=== PATIENT | female | born 1975 | race Caucasian/White ===

== ENCOUNTER 2020-04-27 12:03 | Inpatient (IN) ==
[2020-04-27] MEDS ORDERED: MetroNIDAZOLE 500 MG/100 ML 500 MG/100 ML BAG IVPB ONE ×2 (12:26→12:28)
[2020-04-27] MEDS ORDERED: levoFLOXacin 500 MG/100 ML 500 MG/100 ML BAG IVPB ONE ×2 (12:26→12:28)
[2020-04-27] MEDS ORDERED: Ringers Solution, Lactated 1,000 ML IVC SCH (12:30)
[2020-04-27] MEDS ORDERED: Ondansetron 4 MG/2 ML VIAL IVP PRN ×2 (12:46→19:30)
[2020-04-27] MEDS ORDERED: *HR* Promethazine 25 MG/ML VIAL IVP PRN (12:46)
[2020-04-27] MEDS ORDERED: *HR* Midazolam HCl 2 MG/2 ML VIAL IVP PRN (12:46)
[2020-04-27] MEDS ORDERED: *HR* FentaNYL (PF) 100 MCG/2 ML VIAL IVP PRN (12:46)
[2020-04-27] MEDS ORDERED: diazePAM 5 MG TABLET PO ONE (12:46)
[2020-04-27] MEDS ORDERED: *HR* Meperidine 25 MG/ML SYRINGE IVP PRN (12:46)
[2020-04-27] MEDS ORDERED: *HR* HYDROmorphone PF 0.5 MG/0.5 ML SYRINGE IVP PRN (12:46)
[2020-04-27] MEDS ORDERED: *HR* OxyCODONE Immed Rel 5 MG TABLET PO PRN (12:46)
[2020-04-27] MEDS ORDERED: Ondansetron ODT 4 MG TAB.RAPDIS SL ONE (12:46)
[2020-04-27] MEDS ORDERED: Acetaminophen IV 1,000 MG/100 ML INFUS..BTL IVPB ONE (12:50)
[2020-04-27] MEDS ORDERED: *HR* Rocuronium Bromide 50 MG/5 ML VIAL ONE (13:10)
[2020-04-27] MEDS ORDERED: Lidocaine HCL 4 ML Topical Solution (Laryng-O-Jet Kit Sterile Pak) TP ONE (13:10)
[2020-04-27] MEDS ORDERED: Lidocaine -MPF 2% 2 ML VIAL ONE (13:10)
[2020-04-27] MEDS ORDERED: *HR* Propofol 200 MG/20 ML VIAL IVP ONE (13:10)
[2020-04-27] MEDS ORDERED: *HR* Succinylcholine 200 MG/10 ML VIAL IVP ONE (13:10)
[2020-04-27] MEDS ORDERED: *HR* Midazolam HCl 2 MG/2 ML VIAL ONE (13:10)
[2020-04-27] MEDS ORDERED: *HR* FentaNYL (PF) 100 MCG/2 ML VIAL ONE (13:10)
[2020-04-27] MEDS ORDERED: *HR* HYDROMORPHONE 2 MG/ML VIAL ONE ×2 (15:21→17:25)
[2020-04-27] MEDS ORDERED: Dexamethasone 4 MG/ML VIAL ONE (15:28)
[2020-04-27] MEDS ORDERED: Ondansetron 4 MG/2 ML VIAL ONE (15:28)
[2020-04-27] MEDS ORDERED: Neostigmine Methylsulfate 3 MG/3 ML SYRINGE ONE (15:28)
[2020-04-27] MEDS ORDERED: Morphine Sulfate Oral CONC 10 MG/0.5 ML ORAL.SYG SL PRN (19:30)
[2020-04-27] MEDS ORDERED: Naloxone 0.4 MG/ML INJ IVP PRN (19:30)
[2020-04-27] MEDS: 0.9 % Sodium Chloride 1,000 ML IVC SCH (19:58)
[2020-04-28] MEDS: Acetaminophen IV 1,000 MG/100 ML INFUS..BTL IVPB SCH ×4 (00:13→18:12)
[2020-04-28] MEDS: MetroNIDAZOLE 500 MG/100 ML 500 MG/100 ML BAG IVPB SCH ×2 (00:14→05:44)
[2020-04-28] MEDS: Ketorolac 30 MG/ML VIAL IVP SCH ×4 (00:14→18:11)
[2020-04-28 07:20] LABS: Basophils % 0.1 %; Hematocrit 36.2 % (35.3-44.9); Immature Granulocytes % 0.6 % (0-4); Lymphocytes # 0.9 K/mcL (0.6-4.6); Lymphocytes % 6.4 %; Mean Corpuscular HGB Conc 33.1 g/dL (31.6-35.5); Mean Corpuscular Hemoglobin 31.3 pg (28.0-33.3); Mean Corpuscular Volume 94.5 fL (83.0-100.0); Mean Platelet Volume 10.5 fL (9.4-12.4); Monocytes # 0.8 K/mcL (0.0-1.3); Monocytes % 5.3 %; Neutrophils # 12.6 K/mcL (1.6-8.9); Platelet Count 261 K/mcL (140-400); Red Blood Count 3.83 M/mcL (3.82-4.97); Red Cell Distribution Width 12.2 % (11.5-14.5); Segmented Neutrophils % 87.6 %; White Blood Count 14.3 K/mcL (4.3-11.1)
[2020-04-28 07:39] LABS: BUN/Creatinine Ratio 18 (6-26); Blood Urea Nitrogen 10 mg/dL (6-20); Calcium 8.6 mg/dL (8.6-10.3); Carbon Dioxide 21 mEq/L (23-29); Chloride 106 mEq/L (98-107); Glucose 122 mg/dL (70-105); Osmolality,Calculated 280 (280-300); Potassium 3.8 mEq/L (3.5-5.1); Sodium 135 mEq/L (136-145); eGFR For African Americans > 60 (> 60); eGFR For Non-African Americans > 60 (> 60)
[2020-04-28] MEDS ORDERED: levoFLOXacin 500 MG/100 ML 500 MG/100 ML BAG IVPB SCH (09:00)
[2020-04-28] MEDS: Pantoprazole 40 MG VIAL IVP SCH (09:35)
[2020-04-28] MEDS: 0.9 % Sodium Chloride 1,000 ML IVC SCH (10:54)
[2020-04-28] MEDS: *HR* Heparin 5,000 UNIT/ML VIAL SQ SCH (18:22)
[2020-04-29] MEDS: Ketorolac 30 MG/ML VIAL IVP SCH ×3 (00:04→11:42)
[2020-04-29] MEDS: Acetaminophen IV 1,000 MG/100 ML INFUS..BTL IVPB SCH ×3 (00:05→11:40)
[2020-04-29] MEDS: *HR* Heparin 5,000 UNIT/ML VIAL SQ SCH (05:53)
[2020-04-29] MEDS: 0.9 % Sodium Chloride 1,000 ML IVC SCH (05:53)
[2020-04-29 07:10] VITALS: BP 110/74
[2020-04-29] MEDS: Pantoprazole 40 MG VIAL IVP SCH (08:07)
== END 2020-04-29 15:40 | disposition home or self-care (01) | DRG 331 ==
LOC: SAMDAY 12:03 → 3ANU 19:19
PROVIDERS: ADMIT Surgery; ATTEND Surgery

== ENCOUNTER 2020-11-26 11:01 | Inpatient (IN) ==
[2020-11-26] MEDS ORDERED: Ondansetron 4 MG/2 ML VIAL IVP ONE (11:38)
[2020-11-26] MEDS ORDERED: *HR* FentaNYL (PF) 100 MCG/2 ML VIAL IVP ONE (11:38)
[2020-11-26] MEDS ORDERED: MetroNIDAZOLE 500 MG/100 ML 500 MG/100 ML BAG IVPB ONE (11:51)
[2020-11-26 12:19] LABS: Basophils % 0.3 %; Eosinophils # 0.1 K/mcL (0.0-0.6); Eosinophils % 0.5 %; Hemoglobin 13.3 g/dL (11.5-15.4); Immature Granulocytes % 0.5 % (0-4); Lymphocytes # 2.1 K/mcL (0.6-4.6); Mean Corpuscular HGB Conc 32.4 g/dL (31.6-35.5); Mean Corpuscular Hemoglobin 30.5 pg (28.0-33.3); Mean Platelet Volume 10.2 fL (9.4-12.4); Monocytes # 0.4 K/mcL (0.0-1.3); Monocytes % 2.7 %; Neutrophils # 10.4 K/mcL (1.6-8.9); Platelet Count 306 K/mcL (140-400); Red Blood Count 4.36 M/mcL (3.82-4.97); Red Cell Distribution Width 12.5 % (11.5-14.5)
[2020-11-26] MEDS ORDERED: 0.9 % Sodium Chloride 1,000 ML IVC STA (12:32)
[2020-11-26 12:35] LABS: Alanine Aminotransferase 20 Units/L (7-52); Albumin 4.2 g/dL (3.5-5.7); Albumin/Globulin Ratio 1.6 (1.1-2.2); Alkaline Phosphatase 62 Units/L (34-104); Aspartate Amino Transferase 16 Units/L (13-39); BUN/Creatinine Ratio 39 (6-26); Bilirubin,Direct 0.1 mg/dL (0.0-0.2); Bilirubin,Indirect 0.2 mg/dL (0.0-1.0); Bilirubin,Total 0.3 mg/dL (0.3-1.0); Blood Urea Nitrogen 28 mg/dL (6-20); Carbon Dioxide 22 mEq/L (23-29); Chloride 105 mEq/L (98-107); Globulin 2.7 g/dL (2.4-3.5); Glucose 108 mg/dL (70-105); Lipase 8 Units/L (11-82); Osmolality,Calculated 288 (280-300); Potassium 3.7 mEq/L (3.5-5.1); Sodium 136 mEq/L (136-145); Total Protein 6.9 g/dL (6.4-8.9); eGFR For African Americans > 60 (> 60); eGFR For Non-African Americans > 60 (> 60)
[2020-11-26] MEDS ORDERED: *HR* HYDROmorphone (PF) 1 MG/ML SYRINGE IVP ONE ×2 (12:39→13:39)
[2020-11-26] MEDS ORDERED: *HR* HYDROmorphone 20 MG/20 ML PCA IVC PRN (13:27)
[2020-11-26] MEDS ORDERED: Ketorolac 30 MG/ML VIAL IVP STA (13:42)
[2020-11-26] MEDS: Pantoprazole 40 MG VIAL IVP SCH ×2 (15:00→18:50)
[2020-11-26] MEDS: 0.9 % Sodium Chloride 1,000 ML IVC SCH ×2 (15:22→23:11)
[2020-11-26] MEDS: Ondansetron 4 MG/2 ML VIAL IVP PRN (15:45)
[2020-11-26 16:37] LABS: Bacteria,Urine Few per hpf (None-Few); Bilirubin,Urine Negative (Negative); Blood,Urine Small (Negative); Clarity,Urine Clear (Clear); Color,Urine Yellow (Yellow); Glucose,Urine (UA) Normal (Normal); Ketones,Urine Negative (Negative); Leukocyte Esterase,Urine Negative (Negative); Mucus,Urine Few per lpf (None-Few); Nitrite,Urine Negative (Negative); Protein,Urine Trace mg/dL (Neg-Trace); Specific Gravity,Urine > 1.030 (1.010-1.025); Squamous Epithelial Cell,Urine Few per hpf (None-Few); Urobilinogen,Urine Normal (Normal); WBC,Urine 0-3 per hpf (0-3)
[2020-11-26 17:58] LABS: Adenovirus Not Detected (Not Detect); Bordetella Pertussis Not Detected (Not Detect); Chlamydophila pneumoniae Not Detected (Not Detect); Coronavirus 229E Not Detected (Not Detect); Coronavirus HKU1 Not Detected (Not Detect); Coronavirus NL63 Not Detected (Not Detect); Coronavirus OC43 Not Detected (Not Detect); Human Metapneumovirus Not Detected (Not Detect); Human Rhinovirus/Enterovirus Not Detected (Not Detect); Influenza A Subtype 2009 H1 Not Detected (Not Detect); Influenza B Not Detected (Not Detect); Mycoplasma pneumoniae Not Detected (Not Detect); Parainfluenza Virus 1 Not Detected (Not Detect); Parainfluenza Virus 2 Not Detected (Not Detect); Parainfluenza Virus 3 Not Detected (Not Detect); Parainfluenza Virus 4 Not Detected (Not Detect); Respiratory Syncytial Virus Not Detected (Not Detect); SARS-CoV-2 Not Detected (Not Detect)
[2020-11-26] MEDS: Acetaminophen IV 1,000 MG/100 ML BAG IVPB SCH (18:17)
[2020-11-26] MEDS: *HR* Heparin 5,000 UNIT/ML VIAL SQ SCH (18:18)
[2020-11-26] MEDS: Ketorolac 30 MG/ML VIAL IVP SCH ×2 (18:18→23:10)
[2020-11-27] MEDS: Acetaminophen IV 1,000 MG/100 ML BAG IVPB SCH ×4 (00:19→18:23)
[2020-11-27] MEDS: Ondansetron 4 MG/2 ML VIAL IVP PRN (00:25)
[2020-11-27] MEDS ORDERED: 0.9 % Sodium Chloride 500 ML IVC ONE (03:57)
[2020-11-27] MEDS ORDERED: 0.9 % Sodium Chloride 500 ML ONE (04:03)
[2020-11-27] MEDS: *HR* Heparin 5,000 UNIT/ML VIAL SQ SCH ×2 (05:29→18:22)
[2020-11-27] MEDS: Ketorolac 30 MG/ML VIAL IVP SCH ×3 (05:30→18:22)
[2020-11-27 06:55] LABS: Hematocrit 35.1 % (35.3-44.9); Hemoglobin 11.9 g/dL (11.5-15.4); Mean Corpuscular HGB Conc 33.9 g/dL (31.6-35.5); Mean Corpuscular Hemoglobin 31.3 pg (28.0-33.3); Mean Corpuscular Volume 92.4 fL (83.0-100.0); Mean Platelet Volume 10.1 fL (9.4-12.4); Platelet Count 247 K/mcL (140-400); Red Cell Distribution Width 12.9 % (11.5-14.5)
[2020-11-27 06:59] LABS: White Blood Count 20.9 K/mcL (4.3-11.1)
[2020-11-27 07:16] LABS: BUN/Creatinine Ratio 36 (6-26); Blood Urea Nitrogen 25 mg/dL (6-20); Calcium 7.5 mg/dL (8.6-10.3); Carbon Dioxide 20 mEq/L (23-29); Chloride 104 mEq/L (98-107); Glucose 111 mg/dL (70-105); Osmolality,Calculated 277 (280-300); Potassium 4.1 mEq/L (3.5-5.1); Sodium 131 mEq/L (136-145); eGFR For African Americans > 60 (> 60); eGFR For Non-African Americans > 60 (> 60)
[2020-11-27] MEDS ORDERED: *HR* FentaNYL (PF) 100 MCG/2 ML VIAL ONE (07:25)
[2020-11-27] MEDS ORDERED: *HR* Midazolam HCl 2 MG/2 ML VIAL ONE (07:26)
[2020-11-27] MEDS ORDERED: *HR* Propofol 200 MG/20 ML VIAL IVP ONE (07:26)
[2020-11-27] MEDS ORDERED: Ondansetron 4 MG/2 ML VIAL ONE (07:28)
[2020-11-27] MEDS ORDERED: *HR* HYDROmorphone PF 0.5 MG/0.5 ML SYRINGE IVP PRN ×2 (07:29→10:41)
[2020-11-27] MEDS ORDERED: Ondansetron 4 MG/2 ML VIAL IVP PRN ×3 (07:29→12:09)
[2020-11-27 07:31] LABS: Lymphocytes # 2.1 K/mcL (0.6-4.6); Monocytes # 0.2 K/mcL (0.0-1.3); Neutrophils # 17.4 K/mcL (1.6-8.9)
[2020-11-27 07:32] LABS: Platelet Estimate Normal (Normal); Toxic Granulation Present (Not Present)
[2020-11-27] MEDS ORDERED: Lidocaine -MPF 4% 5 ML AMPUL ONE (07:33)
[2020-11-27] MEDS ORDERED: *HR* Succinylcholine 200 MG/10 ML VIAL IVP ONE (07:39)
[2020-11-27] MEDS ORDERED: *HR* Rocuronium Bromide 50 MG/5 ML VIAL ONE (07:39)
[2020-11-27] MEDS ORDERED: Sugammadex Sodium 200 MG/2 ML VIAL IV ONE (07:46)
[2020-11-27] MEDS ORDERED: *HR* Vasopressin 20 UNIT/ML VIAL ONE (07:56)
[2020-11-27] MEDS ORDERED: CefOXitin 1,000 MG VIAL ONE ×2 (08:08→09:33)
[2020-11-27] MEDS ORDERED: MetroNIDAZOLE 500 MG/100 ML 500 MG/100 ML BAG IVPB ONE (08:08)
[2020-11-27] MEDS ORDERED: *HR* HYDROMORPHONE 2 MG/ML VIAL ONE (09:07)
[2020-11-27] MEDS: Pantoprazole 40 MG VIAL IVP SCH (11:57)
[2020-11-27] MEDS ORDERED: *HR* HYDROmorphone 20 MG/20 ML PCA IVC PRN (12:09)
[2020-11-27] MEDS: 0.9 % Sodium Chloride 1,000 ML IVC SCH ×3 (13:17→22:05)
[2020-11-27] MEDS: MetroNIDAZOLE 500 MG/100 ML 500 MG/100 ML BAG IVPB SCH (17:14)
[2020-11-27] MEDS ORDERED: Chloraseptic Spray 177 ML BOTTLE MM PRN (17:30)
[2020-11-27] MEDS: *HR* Promethazine 25 MG/ML VIAL IM PRN (21:49)
[2020-11-28] MEDS: Ketorolac 30 MG/ML VIAL IVP SCH ×4 (00:59→17:28)
[2020-11-28] MEDS: Acetaminophen IV 1,000 MG/100 ML BAG IVPB SCH ×4 (01:02→17:29)
[2020-11-28] MEDS: MetroNIDAZOLE 500 MG/100 ML 500 MG/100 ML BAG IVPB SCH ×3 (01:18→16:28)
[2020-11-28 05:34] LABS: Basophils % 0.2 %; Eosinophils # 0.2 K/mcL (0.0-0.6); Eosinophils % 0.9 %; Hematocrit 33.6 % (35.3-44.9); Immature Granulocytes % 5.3 % (0-4); Lymphocytes # 1.4 K/mcL (0.6-4.6); Lymphocytes % 5.7 %; Mean Corpuscular HGB Conc 32.7 g/dL (31.6-35.5); Mean Corpuscular Hemoglobin 30.8 pg (28.0-33.3); Mean Corpuscular Volume 94.1 fL (83.0-100.0); Mean Platelet Volume 10.2 fL (9.4-12.4); Monocytes # 0.5 K/mcL (0.0-1.3); Monocytes % 2.1 %; Platelet Count 249 K/mcL (140-400); Red Blood Count 3.57 M/mcL (3.82-4.97); Red Cell Distribution Width 12.9 % (11.5-14.5); Segmented Neutrophils % 85.8 %; White Blood Count 24.4 K/mcL (4.3-11.1)
[2020-11-28 05:38] LABS: Basophils # 0.1 K/mcL (0.0-0.2); Neutrophils # 20.9 K/mcL (1.6-8.9)
[2020-11-28 05:52] LABS: BUN/Creatinine Ratio 16 (6-26); Blood Urea Nitrogen 11 mg/dL (6-20); Calcium 7.4 mg/dL (8.6-10.3); Carbon Dioxide 21 mEq/L (23-29); Chloride 107 mEq/L (98-107); Glucose 115 mg/dL (70-105); Osmolality,Calculated 280 (280-300); Potassium 3.5 mEq/L (3.5-5.1); Sodium 135 mEq/L (136-145); eGFR For African Americans > 60 (> 60); eGFR For Non-African Americans > 60 (> 60)
[2020-11-28] MEDS: *HR* Heparin 5,000 UNIT/ML VIAL SQ SCH ×2 (06:10→17:28)
[2020-11-28 06:21] LABS: Platelet Estimate Normal (Normal)
[2020-11-28] MEDS: 0.9 % Sodium Chloride 1,000 ML IVC SCH ×2 (07:49→17:30)
[2020-11-28] MEDS: Pantoprazole 40 MG VIAL IVP SCH (07:50)
[2020-11-28] MEDS ORDERED: Calcium Gluconate 1gm/50mL 1 GM/50 ML BAG IVPB ONE (09:48)
[2020-11-28] MEDS: Ondansetron 4 MG/2 ML VIAL IVP PRN ×2 (14:07→22:54)
[2020-11-28] MEDS: *HR* Promethazine 25 MG/ML VIAL IM PRN (17:54)
[2020-11-29] MEDS: MetroNIDAZOLE 500 MG/100 ML 500 MG/100 ML BAG IVPB SCH ×4 (00:46→23:51)
[2020-11-29] MEDS: Ketorolac 30 MG/ML VIAL IVP SCH ×4 (00:47→18:14)
[2020-11-29] MEDS: Acetaminophen IV 1,000 MG/100 ML BAG IVPB SCH ×5 (00:50→23:34)
[2020-11-29] MEDS: 0.9 % Sodium Chloride 1,000 ML IVC SCH ×3 (04:12→13:45)
[2020-11-29] MEDS: *HR* Heparin 5,000 UNIT/ML VIAL SQ SCH ×2 (05:14→18:15)
[2020-11-29] MEDS: Ondansetron 4 MG/2 ML VIAL IVP PRN ×4 (05:14→22:06)
[2020-11-29 06:31] LABS: Hematocrit 29.7 % (35.3-44.9); Hemoglobin 10.1 g/dL (11.5-15.4); Mean Corpuscular Hemoglobin 31.3 pg (28.0-33.3); Mean Platelet Volume 10.2 fL (9.4-12.4); Platelet Count 265 K/mcL (140-400); Red Blood Count 3.23 M/mcL (3.82-4.97); Red Cell Distribution Width 12.7 % (11.5-14.5); White Blood Count 21.4 K/mcL (4.3-11.1)
[2020-11-29 06:51] LABS: Eosinophils # 0.9 K/mcL (0.0-0.6); Lymphocytes # 1.7 K/mcL (0.6-4.6); Monocytes # 1.7 K/mcL (0.0-1.3); Neutrophils # 17.1 K/mcL (1.6-8.9); Platelet Estimate Normal (Normal)
[2020-11-29 06:53] LABS: BUN/Creatinine Ratio 14 (6-26); Blood Urea Nitrogen 8 mg/dL (6-20); Calcium 7.8 mg/dL (8.6-10.3); Carbon Dioxide 21 mEq/L (23-29); Chloride 108 mEq/L (98-107); Glucose 102 mg/dL (70-105); Osmolality,Calculated 281 (280-300); Potassium 3.3 mEq/L (3.5-5.1); Sodium 136 mEq/L (136-145); eGFR For African Americans > 60 (> 60); eGFR For Non-African Americans > 60 (> 60)
[2020-11-29] MEDS ORDERED: Potassium Chloride 40 MEQ, Lidocaine 1% 2 ML in 0.9 % Sodium Chloride 500 ML IVPB ONE (08:01)
[2020-11-29] MEDS: Pantoprazole 40 MG VIAL IVP SCH (08:46)
[2020-11-29] MEDS ORDERED: Scopolamine Patch 1.5 MG PATCH.TD72 TD ONE (08:50)
[2020-11-29] MEDS: Fluticasone Propionate Nasal 50 MCG/SPRAY BOTTLE NS SCH (18:14)
[2020-11-29] MEDS: *HR* LORazepam 2 MG/ML VIAL IVP PRN (23:56)
[2020-11-30] MEDS: Ketorolac 30 MG/ML VIAL IVP SCH ×4 (02:28→21:37)
[2020-11-30] MEDS: 0.9 % Sodium Chloride 1,000 ML IVC SCH ×2 (02:30→05:29)
[2020-11-30] MEDS: Acetaminophen IV 1,000 MG/100 ML BAG IVPB SCH ×3 (05:26→17:03)
[2020-11-30] MEDS: *HR* Heparin 5,000 UNIT/ML VIAL SQ SCH ×2 (05:26→17:03)
[2020-11-30 06:04] LABS: Basophils # 0.1 K/mcL (0.0-0.2); Basophils % 0.5 %; Eosinophils # 0.7 K/mcL (0.0-0.6); Eosinophils % 4.5 %; Hematocrit 28.2 % (35.3-44.9); Hemoglobin 9.3 g/dL (11.5-15.4); Immature Granulocytes % 3.7 % (0-4); Lymphocytes # 1.6 K/mcL (0.6-4.6); Lymphocytes % 10.7 %; Mean Corpuscular Hemoglobin 30.6 pg (28.0-33.3); Mean Corpuscular Volume 92.8 fL (83.0-100.0); Mean Platelet Volume 9.8 fL (9.4-12.4); Monocytes # 0.9 K/mcL (0.0-1.3); Monocytes % 6.2 %; Neutrophils # 10.9 K/mcL (1.6-8.9); Platelet Count 262 K/mcL (140-400); Red Blood Count 3.04 M/mcL (3.82-4.97); Red Cell Distribution Width 12.9 % (11.5-14.5); Segmented Neutrophils % 74.4 %; White Blood Count 14.6 K/mcL (4.3-11.1)
[2020-11-30 06:26] LABS: BUN/Creatinine Ratio 16 (6-26); Blood Urea Nitrogen 9 mg/dL (6-20); Calcium 7.8 mg/dL (8.6-10.3); Carbon Dioxide 21 mEq/L (23-29); Chloride 108 mEq/L (98-107); Glucose 106 mg/dL (70-105); Osmolality,Calculated 281 (280-300); Potassium 3.3 mEq/L (3.5-5.1); Sodium 136 mEq/L (136-145); eGFR For African Americans > 60 (> 60); eGFR For Non-African Americans > 60 (> 60)
[2020-11-30] MEDS ORDERED: Potassium Chloride 40 MEQ, Lidocaine 1% 2 ML in 0.9 % Sodium Chloride 500 ML IVPB ONE ×2 (06:43→13:00)
[2020-11-30 07:38] LABS: Magnesium 1.8 mg/dL (1.6-2.6); Phosphorous 2.8 mg/dL (2.7-4.5)
[2020-11-30] MEDS ORDERED: *HR* HYDROmorphone 20 MG/20 ML PCA IVC PRN (08:29)
[2020-11-30] MEDS: Pantoprazole 40 MG VIAL IVP SCH (08:30)
[2020-11-30] MEDS: MetroNIDAZOLE 500 MG/100 ML 500 MG/100 ML BAG IVPB SCH ×2 (08:31→15:15)
[2020-11-30] MEDS: Fluticasone Propionate Nasal 50 MCG/SPRAY BOTTLE NS SCH (08:32)
[2020-11-30] MEDS ORDERED: Baclofen 10 MG TABLET PO PRN (08:47)
[2020-11-30] MEDS: Ondansetron 4 MG/2 ML VIAL IVP PRN (10:07)
[2020-11-30] MEDS: Celecoxib 200 MG CAPSULE PO SCH (10:40)
[2020-11-30] MEDS: BuPROPion XL (24 HR) 150 MG TABLET PO SCH (10:41)
[2020-11-30] MEDS: 0.9 % Sodium Chloride w KCl 20 MEQ/1,000 ML MLS IVC SCH (10:41)
[2020-11-30] MEDS: Loratadine 10 MG TABLET PO SCH (13:08)
[2020-11-30] MEDS: *HR* LORazepam 2 MG/ML VIAL IVP PRN (21:36)
[2020-12-01] MEDS: 0.9 % Sodium Chloride w KCl 20 MEQ/1,000 ML MLS IVC SCH ×3 (00:05→23:55)
[2020-12-01] MEDS: Acetaminophen IV 1,000 MG/100 ML BAG IVPB SCH ×5 (00:06→23:55)
[2020-12-01] MEDS: MetroNIDAZOLE 500 MG/100 ML 500 MG/100 ML BAG IVPB SCH ×4 (00:23→23:55)
[2020-12-01] MEDS: Ketorolac 30 MG/ML VIAL IVP SCH ×4 (03:10→20:19)
[2020-12-01] MEDS: *HR* Heparin 5,000 UNIT/ML VIAL SQ SCH ×2 (05:30→18:14)
[2020-12-01 05:35] LABS: Hematocrit 29.5 % (35.3-44.9); Lymphocytes # 1.8 K/mcL (0.6-4.6); Mean Corpuscular HGB Conc 33.9 g/dL (31.6-35.5); Mean Corpuscular Hemoglobin 30.8 pg (28.0-33.3); Mean Corpuscular Volume 90.8 fL (83.0-100.0); Mean Platelet Volume 9.8 fL (9.4-12.4); Platelet Count 294 K/mcL (140-400); Red Blood Count 3.25 M/mcL (3.82-4.97); Red Cell Distribution Width 12.8 % (11.5-14.5); White Blood Count 12.9 K/mcL (4.3-11.1)
[2020-12-01 05:53] LABS: BUN/Creatinine Ratio 11 (6-26); Blood Urea Nitrogen 6 mg/dL (6-20); Calcium 8.2 mg/dL (8.6-10.3); Carbon Dioxide 21 mEq/L (23-29); Chloride 107 mEq/L (98-107); Glucose 112 mg/dL (70-105); Magnesium 1.7 mg/dL (1.6-2.6); Osmolality,Calculated 280 (280-300); Phosphorous 3.1 mg/dL (2.7-4.5); Potassium 3.6 mEq/L (3.5-5.1); Sodium 136 mEq/L (136-145); eGFR For African Americans > 60 (> 60); eGFR For Non-African Americans > 60 (> 60)
[2020-12-01 06:14] LABS: Monocytes # 0.5 K/mcL (0.0-1.3); Neutrophils # 10.6 K/mcL (1.6-8.9); Platelet Estimate Normal (Normal)
[2020-12-01 06:15] LABS: Toxic Granulation Present (Not Present)
[2020-12-01] MEDS: Calcium Acetate 667 MG CAPSULE PO SCH ×3 (08:23→18:15)
[2020-12-01] MEDS: Loratadine 10 MG TABLET PO SCH (08:25)
[2020-12-01] MEDS: Celecoxib 200 MG CAPSULE PO SCH (08:26)
[2020-12-01] MEDS: BuPROPion XL (24 HR) 150 MG TABLET PO SCH (08:26)
[2020-12-01] MEDS: Pantoprazole 40 MG VIAL IVP SCH (08:27)
[2020-12-01] MEDS: Fluticasone Propionate Nasal 50 MCG/SPRAY BOTTLE NS SCH (08:28)
[2020-12-02] MEDS: Ketorolac 30 MG/ML VIAL IVP SCH ×2 (02:16→08:25)
[2020-12-02] MEDS: Acetaminophen IV 1,000 MG/100 ML BAG IVPB SCH ×3 (06:17→18:05)
[2020-12-02] MEDS: *HR* Heparin 5,000 UNIT/ML VIAL SQ SCH ×2 (06:18→18:06)
[2020-12-02 07:55] LABS: Hematocrit 30.7 % (35.3-44.9); Hemoglobin 10.2 g/dL (11.5-15.4); Mean Corpuscular HGB Conc 33.2 g/dL (31.6-35.5); Mean Corpuscular Hemoglobin 30.3 pg (28.0-33.3); Mean Corpuscular Volume 91.1 fL (83.0-100.0); Mean Platelet Volume 9.6 fL (9.4-12.4); Platelet Count 332 K/mcL (140-400); Red Blood Count 3.37 M/mcL (3.82-4.97); White Blood Count 18.2 K/mcL (4.3-11.1)
[2020-12-02 08:22] LABS: BUN/Creatinine Ratio 11 (6-26); Blood Urea Nitrogen 6 mg/dL (6-20); Calcium 8.6 mg/dL (8.6-10.3); Carbon Dioxide 24 mEq/L (23-29); Chloride 101 mEq/L (98-107); Glucose 105 mg/dL (70-105); Magnesium 1.7 mg/dL (1.6-2.6); Osmolality,Calculated 278 (280-300); Potassium 3.7 mEq/L (3.5-5.1); Sodium 135 mEq/L (136-145); eGFR For African Americans > 60 (> 60); eGFR For Non-African Americans > 60 (> 60)
[2020-12-02] MEDS: Calcium Acetate 667 MG CAPSULE PO SCH (08:25)
[2020-12-02] MEDS: Loratadine 10 MG TABLET PO SCH (08:25)
[2020-12-02] MEDS: BuPROPion XL (24 HR) 150 MG TABLET PO SCH (08:25)
[2020-12-02] MEDS: Pantoprazole 40 MG VIAL IVP SCH (08:26)
[2020-12-02] MEDS: Fluticasone Propionate Nasal 50 MCG/SPRAY BOTTLE NS SCH (08:27)
[2020-12-02] MEDS: Celecoxib 200 MG CAPSULE PO SCH (08:28)
[2020-12-02] MEDS: MetroNIDAZOLE 500 MG/100 ML 500 MG/100 ML BAG IVPB SCH (08:28)
[2020-12-02 08:54] LABS: Eosinophils # 0.2 K/mcL (0.0-0.6); Lymphocytes # 1.3 K/mcL (0.6-4.6); Monocytes # 0.7 K/mcL (0.0-1.3); Neutrophils # 14.7 K/mcL (1.6-8.9); Platelet Estimate Normal (Normal); Toxic Granulation Present (Not Present)
[2020-12-02] MEDS ORDERED: polyethylene glycoL 3350 17 GM POWD.PACK PO ONE (09:54)
[2020-12-02] MEDS ORDERED: Cefepime HCl 2,000 MG in Water for inj. (sterile) 20 ML IVP STA (11:07)
[2020-12-02] MEDS: Fluconazole 400 MG/200 ML 400 MG/200 ML BAG IVPB SCH (12:45)
[2020-12-02 15:48] LABS: Mean Corpuscular HGB Conc 33.3 g/dL (31.6-35.5); Mean Corpuscular Hemoglobin 30.2 pg (28.0-33.3); Mean Corpuscular Volume 90.6 fL (83.0-100.0); Mean Platelet Volume 9.3 fL (9.4-12.4); Platelet Count 339 K/mcL (140-400); Red Blood Count 3.31 M/mcL (3.82-4.97); White Blood Count 16.1 K/mcL (4.3-11.1)
[2020-12-02 16:13] LABS: Lymphocytes # 2.3 K/mcL (0.6-4.6); Monocytes # 0.3 K/mcL (0.0-1.3); Neutrophils # 12.9 K/mcL (1.6-8.9); Platelet Estimate Normal (Normal); Reactive Lymphocytes Present (Not Present); Toxic Granulation Present (Not Present)
[2020-12-02] MEDS: Ondansetron 4 MG/2 ML VIAL IVP PRN (18:03)
[2020-12-02] MEDS: *HR* LORazepam 2 MG/ML VIAL IVP PRN (20:41)
[2020-12-02] MEDS: Cefepime HCl 2,000 MG in Water for inj. (sterile) 20 ML IVP SCH (22:47)
[2020-12-03] MEDS: Acetaminophen IV 1,000 MG/100 ML BAG IVPB SCH ×2 (02:12→06:08)
[2020-12-03 04:52] LABS: Basophils % 0.1 %; Eosinophils # 0.5 K/mcL (0.0-0.6); Eosinophils % 2.7 %; Hematocrit 32.5 % (35.3-44.9); Hemoglobin 10.7 g/dL (11.5-15.4); Immature Granulocytes % 7.9 % (0-4); Lymphocytes % 11.7 %; Mean Corpuscular HGB Conc 32.9 g/dL (31.6-35.5); Mean Corpuscular Hemoglobin 31.5 pg (28.0-33.3); Mean Corpuscular Volume 95.6 fL (83.0-100.0); Mean Platelet Volume 10.1 fL (9.4-12.4); Monocytes % 5.8 %; Neutrophils # 12.4 K/mcL (1.6-8.9); Platelet Count 301 K/mcL (140-400); Red Cell Distribution Width 13.3 % (11.5-14.5); Segmented Neutrophils % 71.8 %; White Blood Count 17.3 K/mcL (4.3-11.1)
[2020-12-03 05:09] LABS: BUN/Creatinine Ratio 15 (6-26); Blood Urea Nitrogen 8 mg/dL (6-20); Calcium 8.2 mg/dL (8.6-10.3); Carbon Dioxide 19 mEq/L (23-29); Chloride 99 mEq/L (98-107); Glucose 111 mg/dL (70-105); Osmolality,Calculated 267 (280-300); Potassium 3.9 mEq/L (3.5-5.1); Sodium 129 mEq/L (136-145); eGFR For African Americans > 60 (> 60); eGFR For Non-African Americans > 60 (> 60)
[2020-12-03 05:53] LABS: Reactive Lymphocytes Present (Not Present)
[2020-12-03 05:54] LABS: Platelet Estimate Normal (Normal)
[2020-12-03] MEDS: *HR* Heparin 5,000 UNIT/ML VIAL SQ SCH ×2 (06:07→17:34)
[2020-12-03] MEDS ORDERED: Isovue-370 500 ML BOTTLE IVP ONE (07:06)
[2020-12-03] MEDS: Loratadine 10 MG TABLET PO SCH (07:44)
[2020-12-03] MEDS: BuPROPion XL (24 HR) 150 MG TABLET PO SCH (07:44)
[2020-12-03] MEDS: Fluconazole 400 MG/200 ML 400 MG/200 ML BAG IVPB SCH (07:45)
[2020-12-03] MEDS: Pantoprazole 40 MG VIAL IVP SCH (07:45)
[2020-12-03] MEDS: Celecoxib 200 MG CAPSULE PO SCH (07:46)
[2020-12-03] MEDS: Fluticasone Propionate Nasal 50 MCG/SPRAY BOTTLE NS SCH (07:48)
[2020-12-03] MEDS: Cefepime HCl 2,000 MG in Water for inj. (sterile) 20 ML IVP SCH ×2 (13:47→23:38)
[2020-12-03 13:55] LABS: INR 1.4; Prothrombin Time 16.1 Seconds (9.4-12.1)
[2020-12-03] MEDS ORDERED: Neosporin OINT 1 APPL PACKET TP ONE (13:57)
[2020-12-03] MEDS: Ondansetron 4 MG/2 ML VIAL IVP PRN (14:15)
[2020-12-03] MEDS ORDERED: 0.9 % Sodium Chloride 500 ML ONE (14:32)
[2020-12-03] MEDS ORDERED: *HR* Midazolam HCl 2 MG/2 ML VIAL IVP ONE ×3 (14:39→15:21)
[2020-12-03] MEDS ORDERED: *HR* FentaNYL (PF) 100 MCG/2 ML VIAL IVP ONE ×4 (14:39→15:52)
[2020-12-03] MEDS ORDERED: *HR* Midazolam HCl 2 MG/2 ML VIAL ONE ×2 (14:45→15:22)
[2020-12-03] MEDS ORDERED: *HR* FentaNYL (PF) 100 MCG/2 ML VIAL ONE ×3 (14:45→15:53)
[2020-12-03] MEDS: polyethylene glycoL 3350 17 GM POWD.PACK PO SCH (17:33)
[2020-12-03] MEDS: Acetaminophen 325 MG TABLET PO PRN (20:39)
[2020-12-04] MEDS: *HR* Heparin 5,000 UNIT/ML VIAL SQ SCH ×2 (05:44→18:15)
[2020-12-04 07:06] LABS: Hematocrit 35.5 % (35.3-44.9); Hemoglobin 11.8 g/dL (11.5-15.4); Mean Corpuscular HGB Conc 33.2 g/dL (31.6-35.5); Mean Corpuscular Hemoglobin 31.3 pg (28.0-33.3); Mean Corpuscular Volume 94.2 fL (83.0-100.0); Mean Platelet Volume 10.5 fL (9.4-12.4); Platelet Count 389 K/mcL (140-400); Red Blood Count 3.77 M/mcL (3.82-4.97); Red Cell Distribution Width 13.3 % (11.5-14.5); White Blood Count 17.5 K/mcL (4.3-11.1)
[2020-12-04 07:33] LABS: BUN/Creatinine Ratio 17 (6-26); Blood Urea Nitrogen 10 mg/dL (6-20); Calcium 8.7 mg/dL (8.6-10.3); Carbon Dioxide 24 mEq/L (23-29); Chloride 99 mEq/L (98-107); Glucose 120 mg/dL (70-105); Osmolality,Calculated 272 (280-300); Potassium 4.4 mEq/L (3.5-5.1); Sodium 131 mEq/L (136-145); eGFR For African Americans > 60 (> 60); eGFR For Non-African Americans > 60 (> 60)
[2020-12-04] MEDS: Ondansetron 4 MG/2 ML VIAL IVP PRN (07:39)
[2020-12-04 08:25] LABS: Eosinophils # 0.4 K/mcL (0.0-0.6); Lymphocytes # 1.4 K/mcL (0.6-4.6); Monocytes # 1.8 K/mcL (0.0-1.3); Platelet Estimate Normal (Normal)
[2020-12-04] MEDS: BuPROPion XL (24 HR) 150 MG TABLET PO SCH (09:34)
[2020-12-04] MEDS: polyethylene glycoL 3350 17 GM POWD.PACK PO SCH (09:34)
[2020-12-04] MEDS: Loratadine 10 MG TABLET PO SCH (09:34)
[2020-12-04] MEDS: Fluconazole 400 MG/200 ML 400 MG/200 ML BAG IVPB SCH (09:35)
[2020-12-04] MEDS: Pantoprazole 40 MG VIAL IVP SCH (09:35)
[2020-12-04] MEDS: Fluticasone Propionate Nasal 50 MCG/SPRAY BOTTLE NS SCH (09:37)
[2020-12-04] MEDS: Celecoxib 200 MG CAPSULE PO SCH (09:43)
[2020-12-04] MEDS: Cefepime HCl 2,000 MG in Water for inj. (sterile) 20 ML IVP SCH ×2 (10:56→22:25)
[2020-12-04] MEDS: Acetaminophen 325 MG TABLET PO PRN (19:42)
[2020-12-05] MEDS: Ondansetron 4 MG/2 ML VIAL IVP PRN ×2 (01:36→15:28)
[2020-12-05] MEDS: *HR* Heparin 5,000 UNIT/ML VIAL SQ SCH ×2 (06:02→17:27)
[2020-12-05] MEDS: Acetaminophen 325 MG TABLET PO PRN ×3 (06:45→20:19)
[2020-12-05 08:29] LABS: Basophils # 0.1 K/mcL (0.0-0.2); Basophils % 0.5 %; Eosinophils # 0.4 K/mcL (0.0-0.6); Eosinophils % 1.8 %; Hematocrit 34.9 % (35.3-44.9); Immature Granulocytes % 4.1 % (0-4); Lymphocytes # 1.8 K/mcL (0.6-4.6); Lymphocytes % 7.7 %; Mean Corpuscular HGB Conc 34.4 g/dL (31.6-35.5); Mean Corpuscular Hemoglobin 31.3 pg (28.0-33.3); Mean Corpuscular Volume 90.9 fL (83.0-100.0); Monocytes # 1.2 K/mcL (0.0-1.3); Monocytes % 5.1 %; Neutrophils # 19.1 K/mcL (1.6-8.9); Platelet Count 668 K/mcL (140-400); Red Blood Count 3.84 M/mcL (3.82-4.97); Red Cell Distribution Width 13.2 % (11.5-14.5); Segmented Neutrophils % 80.8 %; White Blood Count 23.7 K/mcL (4.3-11.1)
[2020-12-05 08:40] LABS: BUN/Creatinine Ratio 11 (6-26); Blood Urea Nitrogen 7 mg/dL (6-20); Calcium 9.3 mg/dL (8.6-10.3); Carbon Dioxide 25 mEq/L (23-29); Chloride 96 mEq/L (98-107); Glucose 126 mg/dL (70-105); Magnesium 2.1 mg/dL (1.6-2.6); Osmolality,Calculated 272 (280-300); Phosphorous 3.4 mg/dL (2.7-4.5); Potassium 4.3 mEq/L (3.5-5.1); Sodium 131 mEq/L (136-145); eGFR For African Americans > 60 (> 60); eGFR For Non-African Americans > 60 (> 60)
[2020-12-05] MEDS: polyethylene glycoL 3350 17 GM POWD.PACK PO SCH (08:48)
[2020-12-05] MEDS: Fluticasone Propionate Nasal 50 MCG/SPRAY BOTTLE NS SCH (08:48)
[2020-12-05] MEDS: BuPROPion XL (24 HR) 150 MG TABLET PO SCH (08:48)
[2020-12-05] MEDS: Loratadine 10 MG TABLET PO SCH (08:48)
[2020-12-05] MEDS: Fluconazole 400 MG/200 ML 400 MG/200 ML BAG IVPB SCH (08:49)
[2020-12-05] MEDS: Pantoprazole 40 MG VIAL IVP SCH (08:49)
[2020-12-05] MEDS ORDERED: levoFLOXacin 750 MG/150 ML 750 MG/150 ML BAG IVPB SCH (09:15)
[2020-12-05] MEDS: MetroNIDAZOLE 500 MG/100 ML 500 MG/100 ML BAG IVPB SCH (15:27)
[2020-12-06] MEDS: MetroNIDAZOLE 500 MG/100 ML 500 MG/100 ML BAG IVPB SCH ×4 (00:01→23:42)
[2020-12-06 01:44] LABS: Basophils # 0.1 K/mcL (0.0-0.2); Basophils % 0.6 %; Eosinophils # 0.3 K/mcL (0.0-0.6); Eosinophils % 1.5 %; Hematocrit 33.2 % (35.3-44.9); Hemoglobin 11.1 g/dL (11.5-15.4); Immature Granulocytes % 3.1 % (0-4); Lymphocytes # 1.9 K/mcL (0.6-4.6); Lymphocytes % 10.1 %; Mean Corpuscular HGB Conc 33.4 g/dL (31.6-35.5); Mean Corpuscular Hemoglobin 30.9 pg (28.0-33.3); Mean Corpuscular Volume 92.5 fL (83.0-100.0); Mean Platelet Volume 8.9 fL (9.4-12.4); Monocytes # 1.1 K/mcL (0.0-1.3); Monocytes % 5.5 %; Platelet Count 585 K/mcL (140-400); Red Blood Count 3.59 M/mcL (3.82-4.97); Red Cell Distribution Width 13.2 % (11.5-14.5); Segmented Neutrophils % 79.2 %
[2020-12-06 02:02] LABS: BUN/Creatinine Ratio 13 (6-26); Blood Urea Nitrogen 7 mg/dL (6-20); Calcium 8.8 mg/dL (8.6-10.3); Carbon Dioxide 23 mEq/L (23-29); Chloride 100 mEq/L (98-107); Glucose 143 mg/dL (70-105); Osmolality,Calculated 276 (280-300); Phosphorous 3.4 mg/dL (2.7-4.5); Potassium 3.9 mEq/L (3.5-5.1); Sodium 133 mEq/L (136-145); eGFR For African Americans > 60 (> 60); eGFR For Non-African Americans > 60 (> 60)
[2020-12-06 03:28] LABS: Troponin I < 0.03 ng/mL (< 0.04)
[2020-12-06] MEDS: Acetaminophen 325 MG TABLET PO PRN ×2 (04:23→19:17)
[2020-12-06] MEDS: Ondansetron 4 MG/2 ML VIAL IVP PRN ×2 (04:24→17:16)
[2020-12-06] MEDS: *HR* Heparin 5,000 UNIT/ML VIAL SQ SCH ×2 (06:01→17:05)
[2020-12-06] MEDS ORDERED: Isovue-370 500 ML BOTTLE IVP ONE (06:08)
[2020-12-06] MEDS: polyethylene glycoL 3350 17 GM POWD.PACK PO SCH (09:28)
[2020-12-06] MEDS: Fluconazole 400 MG/200 ML 400 MG/200 ML BAG IVPB SCH (09:28)
[2020-12-06] MEDS: Pantoprazole 40 MG VIAL IVP SCH (09:28)
[2020-12-06] MEDS: Loratadine 10 MG TABLET PO SCH (09:29)
[2020-12-06] MEDS: Fluticasone Propionate Nasal 50 MCG/SPRAY BOTTLE NS SCH (09:29)
[2020-12-06] MEDS: BuPROPion XL (24 HR) 150 MG TABLET PO SCH (09:29)
[2020-12-06] MEDS ORDERED: GI Cocktail 40 ML EACH PO ONE (10:19)
[2020-12-06] MEDS: methocarbamoL 750 MG TABLET PO PRN ×2 (11:43→19:53)
[2020-12-06] MEDS: Cefepime HCl 2,000 MG in Water for inj. (sterile) 20 ML IVP SCH ×2 (12:18→22:02)
[2020-12-06] MEDS ORDERED: Orphenadrine 60 MG/2 ML VIAL IVP ONE (15:01)
[2020-12-06 15:43] LABS: Bilirubin,Urine Negative (Negative); Blood,Urine Small (Negative); Clarity,Urine Clear (Clear); Color,Urine Light-Yellow (Yellow); Glucose,Urine (UA) Normal (Normal); Ketones,Urine Negative (Negative); Leukocyte Esterase,Urine Negative (Negative); Nitrite,Urine Negative (Negative); PH,Urine 6.5 pH Units (5.0-8.0); Protein,Urine 30 mg/dL (Neg-Trace); Specific Gravity,Urine 1.028 (1.010-1.025); Squamous Epithelial Cell,Urine Few per hpf (None-Few); Urobilinogen,Urine Normal (Normal); WBC,Urine 0-3 per hpf (0-3)
[2020-12-06] MEDS: Nystatin SUSP 5 ML UD.LIQ PO SCH ×2 (17:02→19:53)
[2020-12-07 05:41] LABS: Basophils # 0.1 K/mcL (0.0-0.2); Basophils % 0.8 %; Eosinophils # 0.3 K/mcL (0.0-0.6); Eosinophils % 2.4 %; Hemoglobin 10.5 g/dL (11.5-15.4); Immature Granulocytes % 2.8 % (0-4); Lymphocytes # 1.9 K/mcL (0.6-4.6); Mean Corpuscular HGB Conc 31.8 g/dL (31.6-35.5); Mean Corpuscular Hemoglobin 29.9 pg (28.0-33.3); Mean Platelet Volume 9.4 fL (9.4-12.4); Monocytes # 1.1 K/mcL (0.0-1.3); Monocytes % 7.4 %; Neutrophils # 10.5 K/mcL (1.6-8.9); Platelet Count 682 K/mcL (140-400); Red Blood Count 3.51 M/mcL (3.82-4.97); Red Cell Distribution Width 13.2 % (11.5-14.5); Segmented Neutrophils % 73.6 %; White Blood Count 14.2 K/mcL (4.3-11.1)
[2020-12-07 06:00] LABS: BUN/Creatinine Ratio 15 (6-26); Blood Urea Nitrogen 9 mg/dL (6-20); Calcium 8.9 mg/dL (8.6-10.3); Carbon Dioxide 24 mEq/L (23-29); Chloride 98 mEq/L (98-107); Glucose 119 mg/dL (70-105); Osmolality,Calculated 274 (280-300); Phosphorous 3.3 mg/dL (2.7-4.5); Potassium 3.9 mEq/L (3.5-5.1); Sodium 132 mEq/L (136-145); eGFR For African Americans > 60 (> 60); eGFR For Non-African Americans > 60 (> 60)
[2020-12-07] MEDS: *HR* Heparin 5,000 UNIT/ML VIAL SQ SCH (06:15)
[2020-12-07] MEDS: BuPROPion XL (24 HR) 150 MG TABLET PO SCH (07:57)
[2020-12-07] MEDS: Acetaminophen 325 MG TABLET PO PRN (07:57)
[2020-12-07] MEDS: Loratadine 10 MG TABLET PO SCH (07:58)
[2020-12-07] MEDS: Nystatin SUSP 5 ML UD.LIQ PO SCH ×2 (07:58→12:31)
[2020-12-07] MEDS: Pantoprazole 40 MG VIAL IVP SCH (07:59)
[2020-12-07] MEDS: polyethylene glycoL 3350 17 GM POWD.PACK PO SCH (07:59)
[2020-12-07] MEDS: Cefepime HCl 2,000 MG in Water for inj. (sterile) 20 ML IVP SCH (07:59)
[2020-12-07] MEDS: Fluconazole 400 MG/200 ML 400 MG/200 ML BAG IVPB SCH (07:59)
[2020-12-07] MEDS ORDERED: methocarbamoL 500 MG TABLET PO PRN (08:00)
[2020-12-07] MEDS: MetroNIDAZOLE 500 MG/100 ML 500 MG/100 ML BAG IVPB SCH (08:00)
[2020-12-07] MEDS: Fluticasone Propionate Nasal 50 MCG/SPRAY BOTTLE NS SCH (08:00)
[2020-12-07 12:24] VITALS: BP 120/64
== END 2020-12-07 15:41 | disposition home health service (06) | DRG 330 ==
LOC: 3ANU 11:01 → EMEROOARM 11:01 → 3ANU 15:15
PROVIDERS: ADMIT Surgery; ATTEND Surgery
PROC: IRDRAIN (2020-12-03 13:30)

== ENCOUNTER 2020-12-17 15:16 | Inpatient (IN) ==
[2020-12-18] MEDS ORDERED: Ketorolac 15 MG/ML VIAL IVP PRN (20:33)
[2020-12-18] MEDS ORDERED: Ondansetron 4 MG/2 ML VIAL IVP PRN (20:34)
[2020-12-18] MEDS ORDERED: metroNIDAZOLE 500 MG TABLET PO SCH (21:00)
[2020-12-18] MEDS ORDERED: levoFLOXacin 750 MG/150 ML 750 MG/150 ML BAG IVPB SCH (21:30)
[2020-12-18] MEDS: *HR* Heparin 5,000 UNIT/ML VIAL SQ SCH (21:41)
[2020-12-18] MEDS: Prochlorperazine 10 MG/2 ML VIAL IVP PRN (21:42)
[2020-12-18] MEDS: 0.9 % Sodium Chloride w KCl 20 MEQ/1,000 ML MLS IVC SCH (22:02)
[2020-12-18] MEDS ORDERED: Naloxone 0.4 MG/ML INJ IVP PRN (22:03)
[2020-12-18 23:14] LABS: Basophils # 0.1 K/mcL (0.0-0.2); Basophils % 0.5 %; Eosinophils # 0.3 K/mcL (0.0-0.6); Eosinophils % 2.7 %; Hematocrit 28.6 % (35.3-44.9); Hemoglobin 9.4 g/dL (11.5-15.4); Immature Granulocytes % 1.3 % (0-4); Lymphocytes # 1.6 K/mcL (0.6-4.6); Lymphocytes % 16.7 %; Mean Corpuscular HGB Conc 32.9 g/dL (31.6-35.5); Mean Corpuscular Volume 91.4 fL (83.0-100.0); Mean Platelet Volume 9.2 fL (9.4-12.4); Monocytes # 1.2 K/mcL (0.0-1.3); Neutrophils # 6.1 K/mcL (1.6-8.9); Platelet Count 425 K/mcL (140-400); Red Blood Count 3.13 M/mcL (3.82-4.97); Red Cell Distribution Width 13.2 % (11.5-14.5); Segmented Neutrophils % 65.8 %; White Blood Count 9.3 K/mcL (4.3-11.1)
[2020-12-18 23:26] LABS: Magnesium 1.6 mg/dL (1.6-2.6)
[2020-12-18] MEDS ORDERED: *HR* Metoprolol 5 MG/5 ML VIAL IVP ONE (23:26)
[2020-12-18 23:28] LABS: Alanine Aminotransferase 13 Units/L (7-52); Alkaline Phosphatase 80 Units/L (34-104); Aspartate Amino Transferase 14 Units/L (13-39); BUN/Creatinine Ratio 12 (6-26); Bilirubin,Total 0.2 mg/dL (0.3-1.0); Blood Urea Nitrogen 6 mg/dL (6-20); Calcium 8.3 mg/dL (8.6-10.3); Carbon Dioxide 21 mEq/L (23-29); Chloride 102 mEq/L (98-107); Globulin 2.9 g/dL (2.4-3.5); Glucose 130 mg/dL (70-105); Osmolality,Calculated 277 (280-300); Potassium 3.1 mEq/L (3.5-5.1); Sodium 134 mEq/L (136-145); Total Protein 5.9 g/dL (6.4-8.9); eGFR For African Americans > 60 (> 60); eGFR For Non-African Americans > 60 (> 60)
[2020-12-18 23:29] LABS: Troponin I < 0.03 ng/mL (< 0.04)
[2020-12-19] MEDS: Acetaminophen IV 1,000 MG/100 ML BAG IVPB SCH ×5 (00:06→23:13)
[2020-12-19] MEDS: MetroNIDAZOLE 500 MG/100 ML 500 MG/100 ML BAG IVPB SCH ×4 (00:37→23:13)
[2020-12-19] MEDS ORDERED: *HR* Metoprolol 5 MG/5 ML VIAL IVP ONE (01:53)
[2020-12-19] MEDS: Cefepime HCl 2,000 MG in Water for inj. (sterile) 20 ML IVP SCH ×2 (05:43→18:22)
[2020-12-19] MEDS ORDERED: Famotidine 20 MG/2 ML VIAL IVP SCH (06:00)
[2020-12-19 06:31] LABS: Hematocrit 27.4 % (35.3-44.9)
[2020-12-19] MEDS: 0.9 % Sodium Chloride w KCl 20 MEQ/1,000 ML MLS IVC SCH (06:50)
[2020-12-19] MEDS: *HR* Heparin 5,000 UNIT/ML VIAL SQ SCH ×2 (08:30→20:10)
[2020-12-19] MEDS ORDERED: levoFLOXacin 750 MG TABLET PO SCH (09:00)
[2020-12-19] MEDS: Prochlorperazine 10 MG/2 ML VIAL IVP PRN ×2 (09:51→22:39)
[2020-12-19] MEDS ORDERED: Ondansetron ODT 4 MG TAB.RAPDIS SL PRN (10:10)
[2020-12-19] MEDS ORDERED: Iron Sucrose Complex 400 MG in 0.9 % Sodium Chloride 250 ML IVPB ONE (11:12)
[2020-12-19] MEDS: Scopolamine Patch 1.5 MG PATCH.TD72 TD SCH (11:17)
[2020-12-19] MEDS: D5% in 0.45% NACL w KCl 20 MEQ/1,000 ML MLS IVC SCH (11:18)
[2020-12-19 11:33] LABS: Basophils # 0.1 K/mcL (0.0-0.2); Basophils % 0.8 %; Eosinophils # 0.1 K/mcL (0.0-0.6); Eosinophils % 1.8 %; Hematocrit 28.9 % (35.3-44.9); Hemoglobin 9.7 g/dL (11.5-15.4); Lymphocytes # 1.6 K/mcL (0.6-4.6); Lymphocytes % 21.7 %; Mean Corpuscular HGB Conc 33.6 g/dL (31.6-35.5); Mean Corpuscular Hemoglobin 30.6 pg (28.0-33.3); Mean Corpuscular Volume 91.2 fL (83.0-100.0); Mean Platelet Volume 8.9 fL (9.4-12.4); Monocytes % 13.4 %; Neutrophils # 4.4 K/mcL (1.6-8.9); Platelet Count 431 K/mcL (140-400); Red Blood Count 3.17 M/mcL (3.82-4.97); Segmented Neutrophils % 61.3 %; White Blood Count 7.2 K/mcL (4.3-11.1)
[2020-12-19 12:01] LABS: Magnesium 1.7 mg/dL (1.6-2.6)
[2020-12-19 12:30] LABS: BUN/Creatinine Ratio 10 (6-26); Blood Urea Nitrogen 5 mg/dL (6-20); Carbon Dioxide 23 mEq/L (23-29); Chloride 105 mEq/L (98-107); Glucose 100 mg/dL (70-105); Osmolality,Calculated 277 (280-300); Potassium 3.4 mEq/L (3.5-5.1); Sodium 135 mEq/L (136-145); eGFR For African Americans > 60 (> 60); eGFR For Non-African Americans > 60 (> 60)
[2020-12-20 00:49] LABS: Hematocrit 28.3 % (35.3-44.9); Hemoglobin 9.3 g/dL (11.5-15.4); Mean Corpuscular HGB Conc 32.9 g/dL (31.6-35.5); Mean Corpuscular Hemoglobin 29.6 pg (28.0-33.3); Mean Corpuscular Volume 90.1 fL (83.0-100.0); Mean Platelet Volume 9.1 fL (9.4-12.4); Platelet Count 406 K/mcL (140-400); Red Blood Count 3.14 M/mcL (3.82-4.97); Red Cell Distribution Width 12.9 % (11.5-14.5); White Blood Count 7.2 K/mcL (4.3-11.1)
[2020-12-20 01:12] LABS: BUN/Creatinine Ratio 5 (6-26); Blood Urea Nitrogen 2 mg/dL (6-20); Calcium 7.8 mg/dL (8.6-10.3); Carbon Dioxide 22 mEq/L (23-29); Chloride 105 mEq/L (98-107); Chol/HDL Ratio 5.6 (0-4.9); Cholesterol 96 mg/dL (< 200); Glucose 123 mg/dL (70-105); HDL Cholesterol 17 mg/dL (40-59); LDL Cholesterol,Calculated 51 mg/dL (< 100); Osmolality,Calculated 278 (280-300); Potassium 3.2 mEq/L (3.5-5.1); Sodium 135 mEq/L (136-145); Triglycerides 142 mg/dL (< 150); eGFR For African Americans > 60 (> 60); eGFR For Non-African Americans > 60 (> 60)
[2020-12-20] MEDS: D5% in 0.45% NACL w KCl 20 MEQ/1,000 ML MLS IVC SCH ×4 (02:02→22:16)
[2020-12-20 02:18] LABS: Estimated Average Glucose 128 mg/dl; Hemoglobin A1C 6.1 %
[2020-12-20] MEDS: Cefepime HCl 2,000 MG in Water for inj. (sterile) 20 ML IVP SCH ×2 (06:16→16:34)
[2020-12-20] MEDS: Acetaminophen IV 1,000 MG/100 ML BAG IVPB SCH ×2 (06:16→12:29)
[2020-12-20] MEDS ORDERED: Potassium Chloride 20 MEQ, Lidocaine 1% 2 ML in 0.9 % Sodium Chloride 250 ML IVPB ONE (07:19)
[2020-12-20] MEDS: *HR* Heparin 5,000 UNIT/ML VIAL SQ SCH ×2 (08:29→20:19)
[2020-12-20] MEDS: Prochlorperazine 10 MG/2 ML VIAL IVP PRN (08:30)
[2020-12-20] MEDS: MetroNIDAZOLE 500 MG/100 ML 500 MG/100 ML BAG IVPB SCH ×4 (08:31→23:42)
[2020-12-20] MEDS ORDERED: polyethylene glycoL 3350 17 GM POWD.PACK PO SCH (09:00)
[2020-12-20] MEDS: polyethylene glycoL 3350 17 GM POWD.PACK PO SCH (12:28)
[2020-12-20] MEDS ORDERED: Acetaminophen 325 MG TABLET PO PRN (14:51)
[2020-12-20] MEDS ORDERED: Ondansetron 4 MG/2 ML VIAL IVP PRN (16:00)
[2020-12-20] MEDS ORDERED: Melatonin 3 MG TABLET PO ONE (20:38)
[2020-12-20] MEDS: Ondansetron 4 MG/2 ML VIAL IVP PRN (21:28)
[2020-12-21] MEDS: Ondansetron 4 MG/2 ML VIAL IVP PRN ×2 (03:29→09:59)
[2020-12-21 05:39] LABS: Basophils # 0.1 K/mcL (0.0-0.2); Basophils % 0.8 %; Eosinophils # 0.3 K/mcL (0.0-0.6); Eosinophils % 3.9 %; Hemoglobin 9.5 g/dL (11.5-15.4); Immature Granulocytes % 1.7 % (0-4); Lymphocytes # 1.8 K/mcL (0.6-4.6); Lymphocytes % 23.5 %; Mean Corpuscular HGB Conc 31.7 g/dL (31.6-35.5); Mean Corpuscular Volume 91.5 fL (83.0-100.0); Monocytes # 0.9 K/mcL (0.0-1.3); Monocytes % 11.5 %; Neutrophils # 4.5 K/mcL (1.6-8.9); Platelet Count 431 K/mcL (140-400); Red Blood Count 3.28 M/mcL (3.82-4.97); Red Cell Distribution Width 12.9 % (11.5-14.5); Segmented Neutrophils % 58.6 %; White Blood Count 7.7 K/mcL (4.3-11.1)
[2020-12-21] MEDS: Cefepime HCl 2,000 MG in Water for inj. (sterile) 20 ML IVP SCH ×2 (05:59→17:41)
[2020-12-21 06:00] LABS: BUN/Creatinine Ratio 5 (6-26); Blood Urea Nitrogen 2 mg/dL (6-20); Calcium 8.2 mg/dL (8.6-10.3); Carbon Dioxide 22 mEq/L (23-29); Chloride 104 mEq/L (98-107); Glucose 128 mg/dL (70-105); Osmolality,Calculated 276 (280-300); Potassium 3.6 mEq/L (3.5-5.1); Sodium 134 mEq/L (136-145); eGFR For African Americans > 60 (> 60); eGFR For Non-African Americans > 60 (> 60)
[2020-12-21] MEDS: D5% in 0.45% NACL w KCl 20 MEQ/1,000 ML MLS IVC SCH ×2 (06:00→13:00)
[2020-12-21] MEDS: *HR* Heparin 5,000 UNIT/ML VIAL SQ SCH ×2 (07:58→19:57)
[2020-12-21] MEDS: polyethylene glycoL 3350 17 GM POWD.PACK PO SCH (07:58)
[2020-12-21] MEDS: MetroNIDAZOLE 500 MG/100 ML 500 MG/100 ML BAG IVPB SCH ×2 (08:00→16:33)
[2020-12-21] MEDS ORDERED: D5% in 0.45% NACL w KCl 20 MEQ/1,000 ML MLS IVC SCH (12:30)
[2020-12-21] MEDS: Nystatin SUSP 5 ML UD.LIQ PO SCH ×2 (17:27→19:57)
[2020-12-21] MEDS: Ertapenem 1,000 MG in 0.9 % Sodium Chloride Mini Bag 100 ML IVPB SCH (19:57)
[2020-12-21] MEDS ORDERED: Nystatin POWDER 30 GM BOTTLE TP SCH (21:00)
[2020-12-22 03:14] LABS: Basophils # 0.1 K/mcL (0.0-0.2); Basophils % 0.9 %; Eosinophils # 0.3 K/mcL (0.0-0.6); Eosinophils % 3.5 %; Hematocrit 30.3 % (35.3-44.9); Hemoglobin 10.1 g/dL (11.5-15.4); Immature Granulocytes % 2.7 % (0-4); Lymphocytes # 2.6 K/mcL (0.6-4.6); Mean Corpuscular HGB Conc 33.3 g/dL (31.6-35.5); Mean Corpuscular Hemoglobin 30.1 pg (28.0-33.3); Mean Corpuscular Volume 90.2 fL (83.0-100.0); Mean Platelet Volume 9.1 fL (9.4-12.4); Monocytes # 0.8 K/mcL (0.0-1.3); Monocytes % 8.7 %; Neutrophils # 4.7 K/mcL (1.6-8.9); Platelet Count 457 K/mcL (140-400); Red Blood Count 3.36 M/mcL (3.82-4.97); Red Cell Distribution Width 12.9 % (11.5-14.5); Segmented Neutrophils % 54.2 %; White Blood Count 8.7 K/mcL (4.3-11.1)
[2020-12-22 03:32] LABS: BUN/Creatinine Ratio 10 (6-26); Blood Urea Nitrogen 5 mg/dL (6-20); Calcium 8.3 mg/dL (8.6-10.3); Carbon Dioxide 26 mEq/L (23-29); Chloride 103 mEq/L (98-107); Glucose 111 mg/dL (70-105); Osmolality,Calculated 282 (280-300); Potassium 3.6 mEq/L (3.5-5.1); Sodium 137 mEq/L (136-145); eGFR For African Americans > 60 (> 60); eGFR For Non-African Americans > 60 (> 60)
[2020-12-22] MEDS: Ertapenem 1,000 MG in 0.9 % Sodium Chloride Mini Bag 100 ML IVPB SCH (08:59)
[2020-12-22] MEDS: *HR* Heparin 5,000 UNIT/ML VIAL SQ SCH (09:09)
[2020-12-22] MEDS: Nystatin SUSP 5 ML UD.LIQ PO SCH (09:09)
[2020-12-22] MEDS: Scopolamine Patch 1.5 MG PATCH.TD72 TD SCH (09:09)
[2020-12-22] MEDS: polyethylene glycoL 3350 17 GM POWD.PACK PO SCH (09:10)
[2020-12-22 10:47] VITALS: BP 123/85
== END 2020-12-22 12:42 | disposition home or self-care (01) | DRG 394 ==
LOC: 3NENU
PROVIDERS: ADMIT Surgery; ATTEND Surgery

== ENCOUNTER 2021-03-29 09:38 | Inpatient (IN) ==
[2021-03-29] MEDS ORDERED: levoFLOXacin 500 MG/100 ML 500 MG/100 ML BAG IVPB ONE (09:57)
[2021-03-29] MEDS ORDERED: MetroNIDAZOLE 500 MG/100 ML 500 MG/100 ML BAG IVPB ONE (09:59)
[2021-03-29] MEDS ORDERED: Ringers Solution, Lactated 1,000 ML IVC SCH (10:00)
[2021-03-29] MEDS ORDERED: Acetaminophen IV 1,000 MG/100 ML BAG IVPB ONE (10:08)
[2021-03-29] MEDS ORDERED: *HR* Meperidine 25 MG/ML SYRINGE IVP PRN (10:13)
[2021-03-29] MEDS ORDERED: *HR* HYDROmorphone PF 0.5 MG/0.5 ML SYRINGE IVP PRN (10:13)
[2021-03-29] MEDS ORDERED: Ondansetron 4 MG/2 ML VIAL IVP PRN ×2 (10:13→18:29)
[2021-03-29] MEDS ORDERED: Lidocaine -MPF 2% 2 ML VIAL ONE ×3 (12:38→15:06)
[2021-03-29] MEDS ORDERED: *HR* Propofol 200 MG/20 ML VIAL IVP ONE (12:38)
[2021-03-29] MEDS ORDERED: *HR* Midazolam HCl 2 MG/2 ML VIAL ONE (12:38)
[2021-03-29] MEDS ORDERED: *HR* FentaNYL (PF) 100 MCG/2 ML VIAL ONE (12:38)
[2021-03-29] MEDS ORDERED: Lidocaine -MPF 4% 5 ML AMPUL ONE (12:38)
[2021-03-29] MEDS ORDERED: Ondansetron 4 MG/2 ML VIAL ONE (12:38)
[2021-03-29] MEDS ORDERED: *HR* Rocuronium Bromide 50 MG/5 ML VIAL ONE ×2 (12:38→16:26)
[2021-03-29] MEDS ORDERED: Ketorolac 30 MG/ML VIAL ONE (12:56)
[2021-03-29] MEDS ORDERED: Sugammadex Sodium 200 MG/2 ML VIAL IV ONE ×2 (13:05→16:52)
[2021-03-29] MEDS ORDERED: Dexmedetomidine HCl 400 MCG/100 ML MLS IVC ONE (13:55)
[2021-03-29] MEDS ORDERED: *HR* HYDROMORPHONE 2 MG/ML VIAL ONE (14:45)
[2021-03-29] MEDS ORDERED: EPHEDrine 50 MG/ML VIAL ONE (16:20)
[2021-03-29] MEDS ORDERED: Morphine Sulfate Oral CONC 10 MG/0.5 ML ORAL.SYG SL PRN (18:29)
[2021-03-29] MEDS ORDERED: Naloxone 0.4 MG/ML INJ IVP PRN (18:29)
[2021-03-29] MEDS: Ketorolac 30 MG/ML VIAL IVP SCH ×2 (18:59→23:40)
[2021-03-29] MEDS: *HR* Heparin 5,000 UNIT/ML VIAL SQ SCH (19:00)
[2021-03-29] MEDS: 0.9 % Sodium Chloride 1,000 ML IVC SCH (19:41)
[2021-03-30] MEDS: Ketorolac 30 MG/ML VIAL IVP SCH ×3 (05:49→17:08)
[2021-03-30] MEDS: *HR* Heparin 5,000 UNIT/ML VIAL SQ SCH ×2 (05:49→17:08)
[2021-03-30] MEDS: 0.9 % Sodium Chloride 1,000 ML IVC SCH (07:43)
[2021-03-30] MEDS: *HR* OxyCODONE Immed Rel 5 MG TABLET PO PRN (17:08)
[2021-03-31] MEDS: Ketorolac 30 MG/ML VIAL IVP SCH ×2 (00:37→06:27)
[2021-03-31] MEDS: *HR* Heparin 5,000 UNIT/ML VIAL SQ SCH (06:26)
[2021-03-31] MEDS ORDERED: Ibuprofen 800 MG TABLET PO SCH (08:57)
[2021-03-31] MEDS: *HR* OxyCODONE Immed Rel 5 MG TABLET PO PRN (09:30)
[2021-03-31 12:07] VITALS: BP 114/72; PULSE 77; TEMP 98.1; O2SAT 100
== END 2021-03-31 13:54 | disposition home health service (06) | DRG 331 ==
LOC: SAMDAY 09:38 → 3ANU 18:28
PROVIDERS: ADMIT Surgery; ATTEND Surgery